=== PATIENT | female | born 1990 | race Caucasian/White ===

== ENCOUNTER 2017-04-20 13:53 | Emergency (ER) | payer OTHER ==
[~2017-04-20] VITALS: Ht 165.1 cm; Wt 48.7 kg
[~2017-04-20 13:53] MED LIST: ATEN25TA PO; BCPILLS PO
[2017-04-20 14:02] VITALS: TEMP 36.7; Ht 165.1 cm; Wt 48.7 kg
[2017-04-20 14:40] LABS: HEMATOCRIT 38.5 % (37-47); HEMOGLOBIN 12.9 g/dL (12.0-16.0); MEAN CELL VOLUME 93.2 fL (80-100); MEAN CORPUSCULAR HEMOGLOBIN 31.2 pg (25-34); MEAN CORPUSCULAR HGB CONC 33.5 g/dl (32-36); MEAN PLATELET VOLUME 9.3 fL (7.4-10.4); PLATELET COUNT 302 K/uL (130-400); RED CELL DISTRIBUTION WIDTH SD 40.6 fL (36.4-46.3); WHITE BLOOD COUNT 9.16 K/uL (4.8-10.8)
[2017-04-20 14:56] LABS: ALBUMIN 3.8 gm/dl (3.4-5.0); ALT/SGPT 21 U/L (12-78); AST/SGOT 17 U/L (15-37); BLOOD UREA NITROGEN 11 mg/dl (7-18); CALCIUM 8.8 mg/dl (8.5-10.1); CARBON DIOXIDE 24 mmol/L (21-32); CREATININE 0.76 mg/dl (0.60-1.20); GLUCOSE 103 mg/dl (70-99); LIPASE 246 U/L (73-393); POTASSIUM 3.5 mmol/L (3.5-5.1); SODIUM 136 mmol/L (136-145)
[2017-04-20 15:00] LABS: BASO % 0.1 %; BASO ABS # 0.01 K/uL (0-0.2); EOS % 0.7 %; EOS ABS # 0.06 K/uL (0-0.5); IG# 0.01 K/uL (0.00-0.02); LYMPH % 19.2 %; LYMPH ABS # 1.76 K/uL (1.2-3.4); MONO % 3.7 %; MONO ABS # 0.34 K/uL (0.11-0.59); NEUT % 76.2 %; NEUT ABS # 6.98 K/uL (1.4-6.5)
[2017-04-20 15:07] LABS: ALKALINE PHOSPHATASE 49 U/L (45-117); TOTAL PROTEIN 7.5 gm/dl (6.4-8.2)
--- NOTE | 2017-04-20 15:36 | DIAGNOSTIC IMAGING REPORT ---
ABDOMEN 2VIEW W/PA CHEST RTN CLINICAL HISTORY: abd pain pain COMPARISON STUDY: 04/15/2014 FINDINGS: The soft tissues, psoas shadows, renal outlines and intestinal gas pattern appear normal. There is no evidence for bowel obstruction. There is no evidence for free intraperitoneal air. No abnormal abdominal calcifications are seen. A frontal view of the chest was performed and is unremarkable. IMPRESSION: Normal study. The above report was generated using voice recognition software. It may contain grammatical, syntax or spelling errors. Electronically signed by: Bharat Grullon M.D. 04/20/2017 3:35 PM Dictated Date/Time: 04/20/2017 3:35 PM
[2017-04-20 16:57] VITALS: BP 118/73; PULSE 80; O2SAT 98
--- NOTE | 2017-04-20 19:06 | EMERGENCY ROOM VISIT NOTE ---
History Report prepared by Yoni: Sg Archuleta Under the Supervision of: Dorothy TaylorO. First contact with patient: 14:09 Chief Complaint: PALPITATIONS Stated Complaint: PALPATATIONS, HX OF SVT, EXCESSIVE GAS/BELCHING History of Present Illness The patient is a 27 year old female who presents to the Emergency Room with complaints of intermittent palpitations starting three days ago. The patient states that she feels like air is trapped in her stomach, then she has some palpitations, and then she belches and feels fine. Though the past few days, afterwards she would still feel the palpitations. She states that three days ago it happened for a round 10-15 minutes, and then two days ago she had it for a few hours, yesterday she had it a few times, and then today it has been constant since around 1000 this morning. She states that she does not feel like she has to burp today, though her heart feels like it is fluttering. The patient states that she is a little short of breath, though she denies any real chest pain stating that there is only a discomfort with the palpitations. The patient has a history of SVT, and she had an ablation done in 2016. She states that she has a history of IBS, panic attacks, and anxiety as well. She states that she still has her appendix and gall bladder. Her last bowel movement was this morning a couple of hours ago. Patient denies diabetes, hypertension, hyperlipidemia, CAD, history of sudden at a young age, and smoking. Pt denies headache, change in vision, throat pain, ear pain, fevers, nausea, vomiting, diarrhea, pain with urination, and melena. Source of History: patient Onset: three days ago Position: other (heart) Quality: other (palpitations) Timing: intermittent Associated Symptoms: + SOB, No chest pain Review of Systems See HPI for pertinent positives & negatives. A total of 10 systems reviewed and were otherwise negative. Past Medical & Surgical Medical Problems: (1) Chronic Sinusitis Nos (2) Tachycardia Nos Family History Hypertension Lung disease Social History Smoking Status: Never Smoker Alcohol Use: none Drug Use: none Marital Status: single Housing Status: lives with family Occupation Status: employed Current/Historical Medications Scheduled Control Pills ( Control Pills), 1 TAB PO DAILY Allergies Coded Allergies: Penicillins (Verified Allergy, Intermediate, RASH, 04/20/17) Sulfa Antibiotics (Verified Allergy, Intermediate, RASH, 04/20/17) Physical Exam Vital Signs Date Time Temp Pulse Resp B/P (MAP) Pulse Ox O2 Delivery O2 Flow Rate FiO2 04/20/17 16:57 80 18 118/73 98 04/20/17 15:40 78 18 133/93 99 Room Air 04/20/17 14:30 78 04/20/17 14:28 98 Room Air 04/20/17 14:02 36.7 115 20 157/77 98 Room Air Physical Exam GENERAL: Sitting up in bed, alert, well appearing, well nourished, no distress, non-toxic EYE EXAM: normal conjunctiva. OROPHARYNX: no exudate, no erythema, lips, buccal mucosa, and tongue normal and mucous membranes are moist NECK: supple, no nuchal rigidity, no adenopathy, non-tender, no JVD. LUNGS: Clear to auscultation. Normal chest wall mechanics HEART: Tachycardic. No murmurs, S1 normal and S2 normal ABDOMEN: abdomen soft, non-tender, normo-active bowel sounds, no masses, no rebound or guarding. BACK: Back is symmetrical on inspection and there is no deformity, no midline tenderness, no CVA tenderness. SKIN: no rashes and no bruising UPPER EXTREMITIES: upper extremities are grossly normal. LOWER EXTREMITIES: Calves are equal bilaterally. No pitting edema. NEURO EXAM: Normal sensorium, cranial nerves II-XII grossly intact, normal speech, no gross weakness of arms, no gross weakness of legs. Medical Decision & Procedures ER Provider Diagnostic Interpretation: Radiology results as stated below per my review and the radiologist's interpretation: ABDOMEN 2VIEW W/PA CHEST RTN CLINICAL HISTORY: abd pain pain COMPARISON STUDY: 04/15/2014 FINDINGS: The soft tissues, psoas shadows, renal outlines and intestinal gas pattern appear normal. There is no evidence for bowel obstruction. There is no evidence for free intraperitoneal air. No abnormal abdominal calcifications are seen. A frontal view of the chest was performed and is unremarkable. IMPRESSION: Normal study. The above report was generated using voice recognition software. It may contain grammatical, syntax or spelling errors. Electronically signed by: Bharat Grullon M.D. 04/20/2017 3:35 PM Dictated Date/Time: 04/20/2017 3:35 PM Laboratory Results 2/12/18 14:28 Red Blood Count 4.13, Mean Corpuscular Volume 93.2, Mean Corpuscular Hemoglobin 31.2, Mean Corpuscular Hemoglobin Concent 33.5, Mean Platelet Volume 9.3, Neutrophils (%) (Auto) 76.2, Lymphocytes (%) (Auto) 19.2, Monocytes (%) (Auto) 3.7, Eosinophils (%) (Auto) 0.7, Basophils (%) (Auto) 0.1, Neutrophils # (Auto) 6.98, Lymphocytes # (Auto) 1.76, Monocytes # (Auto) 0.34, Eosinophils # (Auto) 0.06, Basophils # (Auto) 0.01 04/20/17 14:28 Test 04/20/17 14:28 04/20/17 15:00 White Blood Count 9.16 K/uL (4.8-10.8) Red Blood Count 4.13 M/uL (4.2-5.4) Hemoglobin 12.9 g/dL (12.0-16.0) Hematocrit 38.5 % (37-47) Mean Corpuscular Volume 93.2 fL (80-100) Mean Corpuscular Hemoglobin 31.2 pg (25-34) Mean Corpuscular Hemoglobin Concent 33.5 g/dl (32-36) Platelet Count 302 K/uL (130-400) Mean Platelet Volume 9.3 fL (7.4-10.4) Neutrophils (%) (Auto) 76.2 % Lymphocytes (%) (Auto) 19.2 % Monocytes (%) (Auto) 3.7 % Eosinophils (%) (Auto) 0.7 % Basophils (%) (Auto) 0.1 % Neutrophils # (Auto) 6.98 K/uL (1.4-6.5) Lymphocytes # (Auto) 1.76 K/uL (1.2-3.4) Monocytes # (Auto) 0.34 K/uL (0.11-0.59) Eosinophils # (Auto) 0.06 K/uL (0-0.5) Basophils # (Auto) 0.01 K/uL (0-0.2) RDW Standard Deviation 40.6 fL (36.4-46.3) RDW Coefficient of Variation 12.0 % (11.5-14.5) Immature Granulocyte % (Auto) 0.1 % Immature Granulocyte # (Auto) 0.01 K/uL (0.00-0.02) D-Dimer < 190 ug/L FEU (0-500) Anion Gap 8.0 mmol/L (3-11) Est Creatinine Clear Calc Drug Dose 84.7 ml/min Estimated GFR () 123.7 Estimated GFR (Non- 106.8 BUN/Creatinine Ratio 14.7 (10-20) Calcium Level 8.8 mg/dl (8.5-10.1) Total Bilirubin 0.3 mg/dl (0.2-1) Direct Bilirubin < 0.1 mg/dl (0-0.2) Aspartate Amino Transf (AST/SGOT) 17 U/L (15-37) Alanine Aminotransferase (ALT/SGPT) 21 U/L (12-78) Alkaline Phosphatase 49 U/L (45-117) Troponin I < 0.015 ng/ml (0-0.045) Total Protein 7.5 gm/dl (6.4-8.2) Albumin 3.8 gm/dl (3.4-5.0) Lipase 246 U/L (73-393) Thyroid Stimulating Hormone (TSH) 0.763 uIu/ml (0.300-4.500) Urine Color YELLOW Urine Appearance CLEAR (CLEAR) Urine pH 6.0 (4.5-7.5) Urine Specific [place] 1.018 (1.000-1.030) Urine Protein NEG (NEG) Urine Glucose (UA) NEG (NEG) Urine Ketones NEG (NEG) Urine Occult Blood NEG (NEG) Urine Nitrite NEG (NEG) Urine Bilirubin NEG (NEG) Urine Urobilinogen NEG (NEG) Urine Leukocyte Esterase NEG (NEG) Urine WBC (Auto) 1-5 /hpf (0-5) Urine RBC (Auto) 0-4 /hpf (0-4) Urine Hyaline Casts (Auto) 1-5 /lpf (0-5) Urine Epithelial Cells (Auto) >30 /lpf (0-5) Urine Bacteria (Auto) NEG (NEG) Urine Test NEG (NEG) Laboratory results per my review. ECG Indication: palpitations Rate (beats per minute): 92 Rhythm: sinus rhythm Findings: other (normal axis, non-specific ST flattening in the inferior leads) Change: Patient's electrocardiogram interpreted by me. ED Course ED COURSE: Vital signs were reviewed and showed tachycardia and situational hypertension The patients medical record was reviewed The above diagnostic studies were performed and reviewed. ED treatments and interventions as stated above. 1409: The patient was evaluated in room C9. A complete history and physical examination was performed. 1636: Upon reevaluation, the patient is doing well.I discussed my findings with the patient and she understands and agrees with the treatment plan. Based on the patients age, coexisting illnesses, exam and lab findings the decision to treat as an outpatient was made. The patient remained stable while under my care. The patient appeared well at the time of discharge. Medical Decision Differential diagnosis: Etiologies such as premature contractions, electrolyte abnormality, cardiac dysrhythmia, thyroid dysfunction, pulmonary embolism, infection, gastrointestinal, as well as others were entertained. Patient is a 19-year-old female with a past medical history of SVT who presents to ER with intermittent fullness in her epigastric region. This makes her feel like she has to burp which she does and then feels like her heart is racing. Previous ablation. Patient notes that has been coming intermittently but persistent throughout most of today. CBC all BMP, LFTs, bilirubin and troponin was unremarkable. Lipase and TSH were normal. UA was negative. was negative. D-dimer was negative. Chest x-ray and abdominal obstruction series was unremarkable. She is monitored in the ER. No signs of overt rhythm. EKG was unremarkable. Patient was updated bedside and felt significant better. She discharged follow-up with PCP as an outpatient. I did instruct her to purchase Pepcid [id number] and to see if this is related to GI/GERD. Discussed with Pt concerning signs and symptoms to watch out for. Pt was instructed to follow up with their PCP and discussed with the patient their option to return to the ED at anytime for persistent or worsening symptoms. The appropriate anticipatory guidance and out-patient management, including indications for return to the emergency department, were explained at length to the patient and understood. Medication Reconcilliation Current Medication List: was personally reviewed by me Blood Pressure Screening Patient's blood pressure: Elevated blood pressure Blood pressure disposition: Elevated BP felt to be situational Impression Primary Impression: Palpitations Scribe Attestation The scribe's documentation has been prepared under my direction and personally reviewed by me in its entirety. I confirm that the note above accurately reflects all work, treatment, procedures, and medical decision making performed by me. Departure Information Dispostion Home / Self-Care Referrals Molly Infante D.O. (PCP) Forms HOME CARE DOCUMENTATION FORM, IMPORTANT VISIT INFORMATION, WORK / SCHOOL INSTRUCTIONS Patient Instructions ED Palpitations, My [facility] Additional Instructions Please follow up with your primary care doctor with in the next 24 hours. Any worsening of your symptoms, please return to the ED immediately. This includes any fevers greater than 100.4, worsening pain, chest pain, shortness breath, persistent nausea, vomiting, unable to eat or drink, or any other concerning signs or symptoms from your standpoint. Please be sure you follow up with your operations supervisor 2nd shift as an outpatient.
== END 2017-04-20 16:58 | disposition home or self-care (01) ==
LOC: C.EDB 13:55 → C.EDC 16:58
DX: R00.2 Palpitations (principal); K58.9 Irritable bowel syndrome, unspecified; F41.9 Anxiety disorder, unspecified; J32.9 Chronic sinusitis, unspecified; R00.0 Tachycardia, unspecified; Z86.79 Personal history of other diseases of the circulatory system; Z82.49 Family history of ischemic heart disease and other diseases of the circulatory system; Z79.3 Long term (current) use of hormonal contraceptives

== ENCOUNTER 2018-07-30 19:10 | Inpatient (IN) ==
[2018-07-30] MEDS ORDERED: OXYTOCIN 30 UNITS/500 ML BAG IV PRN (19:45)
[2018-07-30] MEDS: LACTATED RINGER'S 1,000 ML IV PRN ×2 (20:00→21:02)
[2018-07-30] MEDS ORDERED: BUPIVACAINE 0.25% 30 ML VIAL ONE (20:03)
[2018-07-30] MEDS ORDERED: ePHEDrine sulfate 50 MG/ML AMP ONE (20:03)
[2018-07-30] MEDS ORDERED: fentaNYL citrate 100 MCG/2 ML VIAL ONE (20:03)
[2018-07-30] MEDS ORDERED: fentaNYL 2MCG/ML ROPIV 1.25MG/ML 100 ML BAG EPI ONE (20:04)
[2018-07-30 20:17] LABS: Hematocrit (blood only) 33.3 % (37-47); Hemoglobin 11.6 g/dL (12.0-16.0); Mean Corpuscular Volume 95.7 fL (80-100); Mean Platelet Volume 9.6 fL (7.4-10.4); Platelet Count 263 K/uL (130-400); RDW Coefficient of Variation 12.7 % (11.5-14.5); RDW Standard Deviation 43.7 fL (36.4-46.3); Red Blood Count 3.48 M/uL (4.2-5.4); White Blood Count 12.42 K/uL (4.8-10.8)
--- NOTE | 2018-07-30 20:35 | Anesthesiology Consultation ---
Date of Service July 30, 2018 Assessment & Plan Chart Review Chart Review: Patient NOT seen in Pre Admission Testing and Acceptable Risk for Labor Epidural Consults Requested none ASA ASA2 Proposed Anesthesia Anesthesia Type: Labor Epidural and CSE Risk / Benefits Reviewed With: PT / POA / Parent / Guardian, Accepts Plan and Informed Consent Obtained History Height/Weight Height: 5 ft 5 in Weight: 61.689 kg Allergies Allergy/AdvReac Type Severity Reaction Status Date / Time Penicillins Allergy Intermediate RASH Verified 06/08/18 10:43 Sulfa (Sulfonamide Allergy Intermediate RASH Verified 06/08/18 10:43 Antibiotics) Medications Home Medications Medication Instructions Recorded Confirmed Last Taken pedi multivitamin no.79-iron 1 tab PO DAILY 07/30/18 07/30/18 07/29/18 08:00 [Flintstones with Iron] NPO Date Last Intake of Fluids: 07/30/18 Time Last Intake of Fluids: 20:00 Date Last Intake of Solids: 07/30/18 Time Last Intake of Solids: 18:00 Past Medical History Medical History Anxiety (Acute) Ovarian cyst Exercise / Class Metabolic Activity II 4-5 Yardwork/Stairs/Walk up hill Past Family History Family History Other No pertinent family history Past Surgical History Surgical History Status post ablation operation for arrhythmia Past Anesthesia History No Hx of Anesthesia Complications and No Family Hx of Anesthesia Complications History of PONV No Hx of PONV Social History Smoking Status: Never smoker Do You Dip or Chew Tobacco: No Hx Alcohol Use: No Hx Substance Use: No substance use type: does not use Review of Systems no chest pain or sob Physical Exam Vital Signs Last Vital Signs Temp 36.5 C 07/30/18 20:04 Pulse 80 07/30/18 20:04 Resp 20 07/30/18 20:04 BP 130/76 07/30/18 20:04 ENMT Mouth: no TMJ abnormality Thyromental Distance: > or= 3.5 Finger Breadths Mallampati Class: II Neck normal visual inspection Respiratory normal respiratory effort Auscultation: lungs clear to auscultation bilaterally Cardiovascular Rate/Rhythm: regular rate and regular rhythm Musculoskeletal Spine: normal cervical ROM Neurologic moves all extremities Psychiatric Orientation: alert and oriented x 3 Testing Other Testing plt [id number]
[2018-07-30] MEDS ORDERED: ONDANSETRON INJ 2 MG/ML 2 ML VIAL IV PRN (20:37)
[2018-07-30] MEDS ORDERED: NALBUPHINE HCL INJ 10 MG/ML AMP IV PRN (20:37)
[2018-07-30] MEDS ORDERED: NALOXONE HCL 0.4 MG/1 ML VIAL/CARP IV PRN (20:37)
[2018-07-30] MEDS ORDERED: ePHEDrine sulfate 50 MG/ML AMP IV PRN (20:37)
[2018-07-30] MEDS ORDERED: NALOXONE HCL 1 MG in SODIUM CHLORIDE 0.9% 1000ML 1,000 ML IV PRN (20:37)
[2018-07-30] MEDS ORDERED: DiphenhydrAMINE HCL 50 MG/ML VIAL IV PRN (20:37)
[2018-07-30] MEDS: fentaNYL 2MCG/ML ROPIV 1.25MG/ML 100 ML BAG EPI PRN (20:57)
[2018-07-30 21:53] LABS: Mean Corpuscular Hgb Conc 34.8 g/dL (32-36)
--- NOTE | 2018-07-30 22:18 | Anesthesia Procedure Note ---
Date of Service July 30, 2018 Anesthesia Post Epidural Note Vital Signs Vital Signs: Temp Pulse Resp BP Pulse Ox 07/30/18 22:15 93 H 96 07/30/18 22:10 80 97 07/30/18 22:05 78 117/64 96 07/30/18 22:00 76 96 07/30/18 21:55 90 96 07/30/18 21:50 90 96 07/30/18 21:49 100 H 125/79 07/30/18 21:45 84 97 07/30/18 21:40 81 97 07/30/18 21:35 92 H 97 07/30/18 21:34 86 128/75 07/30/18 21:30 94 H 20 97 07/30/18 21:25 97 H 96 07/30/18 21:20 84 97 07/30/18 21:19 93 H 133/79 07/30/18 21:15 95 H 97 07/30/18 21:10 95 H 99 07/30/18 21:05 102 H 100 07/30/18 21:02 114 H 132/86 07/30/18 21:00 111 H 100 07/30/18 20:58 124/68 07/30/18 20:55 105 H 142/63 H 100 07/30/18 20:50 101 H 131/67 100 07/30/18 20:45 96 H 100 07/30/18 20:40 96 H 100 07/30/18 20:35 103 H 100 07/30/18 20:04 36.5 C 80 20 130/76 07/30/18 19:28 104 H 137/73 07/30/18 19:25 36.5 C 20 Notes Mental Status: alert / awake / arousable and participated in evaluation Nausea / Vomiting: adequately controlled Pain: adequately controlled Airway Patency, RR, SpO2: stable & adequate BP & HR: stable & adequate Hydration State: stable & adequate Neuraxial Anesthesia: was administered and sensory block is resolving Anesthetic Complications: no major complications apparent and Pt Satisfied with anesthetic care Epidural: Removed without complications and With tip intact
--- NOTE | 2018-07-31 00:10 | Labor Progress Brief Note ---
Date of Service July 31, 2018 doing well FHR; CAT1 Ctx ; 2-6mins VE 7/100/0 AROM; clear' Anticipate VD Results & Data Vital Signs (Past 12 Hours) Vital Signs Temp Pulse Resp BP Pulse Ox 07/31/18 00:05 98 H 143/80 H 100 07/31/18 00:00 70 98 07/30/18 23:55 73 100 07/30/18 23:50 68 116/71 99 07/30/18 23:45 74 100 07/30/18 23:40 72 99 07/30/18 23:36 81 124/80 07/30/18 23:35 87 100 07/30/18 23:30 90 20 100 07/30/18 23:25 78 99 07/30/18 23:22 75 113/65 07/30/18 23:20 74 99 07/30/18 23:15 81 99 07/30/18 23:10 87 99 07/30/18 23:05 87 98 07/30/18 23:04 82 109/68 07/30/18 23:00 83 98 07/30/18 22:55 90 97 07/30/18 22:50 88 98 07/30/18 22:49 85 112/69 07/30/18 22:45 89 98 07/30/18 22:40 100 H 98 07/30/18 22:35 99 H 149/70 H 98 07/30/18 22:30 36.7 C 82 18 97 07/30/18 22:25 79 97 07/30/18 22:20 90 121/68 97 07/30/18 22:15 93 H 96 07/30/18 22:10 80 97 07/30/18 22:05 78 117/64 96 07/30/18 22:00 76 18 96 07/30/18 21:55 90 96 07/30/18 21:50 90 96 07/30/18 21:49 100 H 125/79 07/30/18 21:45 84 97 07/30/18 21:40 81 97 07/30/18 21:35 92 H 97 07/30/18 21:34 86 128/75 07/30/18 21:30 94 H 20 97 07/30/18 21:25 97 H 96 07/30/18 21:20 84 97 05/24/19 21:19 93 H 133/79 05/24/19 21:15 95 H 97 07/30/18 21:10 95 H 99 07/30/18 21:05 102 H 100 07/30/18 21:02 114 H 132/86 07/30/18 21:00 111 H 100 07/30/18 20:58 124/68 07/30/18 20:55 105 H 142/63 H 100 07/30/18 20:50 101 H 131/67 100 07/30/18 20:45 96 H 100 07/30/18 20:40 96 H 100 07/30/18 20:35 103 H 100 07/30/18 20:04 36.5 C 80 20 130/76 07/30/18 19:28 104 H 137/73 07/30/18 19:25 36.5 C 20
[2018-07-31] MEDS: fentaNYL 2MCG/ML ROPIV 1.25MG/ML 100 ML BAG EPI PRN (02:16)
[2018-07-31] MEDS: LACTATED RINGER'S 1,000 ML IV PRN (04:16)
[2018-07-31] MEDS ORDERED: METHYLERGONOVINE MALEATE 0.2 MG/ML AMP ONE (07:23)
[2018-07-31] MEDS ORDERED: miSOPROStol 200 MCG TAB ONE (07:28)
[2018-07-31] MEDS ORDERED: ACETAMINOPHEN 325 MG TAB PO PRN (08:20)
[2018-07-31] MEDS ORDERED: ACETAMINOPHEN W/CODEINE #3 1 TAB PO PRN (08:20)
[2018-07-31] MEDS ORDERED: METHYLERGONOVINE MALEATE 0.2 MG/ML AMP IM ONE (08:20)
[2018-07-31] MEDS ORDERED: OXYCODONE/ACETAMINOPHEN 5mg/325mg TAB PO PRN ×2 (08:20→16:12)
[2018-07-31] MEDS ORDERED: HYDROCORTISONE ACETATE 25 MG SUPP PR PRN (08:20)
[2018-07-31] MEDS ORDERED: SUPERCREAM 0.870% 15 GM JAR EXT PRN (08:20)
[2018-07-31] MEDS ORDERED: miSOPROStol 200 MCG TAB PR ONE (08:20)
[2018-07-31] MEDS ORDERED: BENZOCAINE 20% AER SPR 82.5 GM CAN EXT PRN (08:20)
[2018-07-31] MEDS ORDERED: BISACODYL 10 MG SUPP PR PRN (08:20)
[2018-07-31] MEDS ORDERED: DIPHTHERIA/TETANUS/PERTUSSIS 0.5 ML SYR/VIAL IM ONE (08:20)
[2018-07-31] MEDS ORDERED: OXYTOCIN 30 UNITS/500 ML BAG IV PRN (08:20)
[2018-07-31] MEDS ORDERED: PRENATAL VITAMIN 1 TAB PO SCH (09:00)
[2018-07-31] MEDS: IBUPROFEN 600 MG TAB PO PRN ×3 (10:20→20:44)
--- NOTE | 2018-07-31 10:57 | Anesthesia Procedure Note ---
Date of Service July 31, 2018 Anesthesia Post Epidural Note Vital Signs Vital Signs: Temp Pulse Resp BP Pulse Ox 07/31/18 10:38 88 111/64 07/31/18 10:23 86 106/60 07/31/18 10:08 93 H 115/73 07/31/18 09:57 110 H 119/76 07/31/18 09:38 118 H 131/68 07/31/18 09:08 89 112/52 L 07/31/18 08:53 80 116/58 L 07/31/18 08:38 81 118/61 07/31/18 08:23 93 H 118/59 L 07/31/18 08:19 110 H 129/71 07/31/18 07:35 103 H 125/66 07/31/18 07:30 108 H 100 07/31/18 07:25 113 H 100 07/31/18 07:21 100 H 92 07/31/18 07:20 107 H 143/85 H 100 07/31/18 07:15 116 H 100 07/31/18 07:10 117 H 100 07/31/18 07:09 108 H 76 L 07/31/18 07:06 117 H 135/90 07/31/18 07:05 104 H 100 07/31/18 07:00 119 H 100 07/31/18 06:56 119 H 83 L 07/31/18 06:55 119 H 100 07/31/18 06:50 122 H 146/80 H 100 07/31/18 06:45 99 H 100 07/31/18 06:40 108 H 75 L 07/31/18 06:36 97 H 132/72 07/31/18 06:35 114 H 142/106 H 100 07/31/18 06:32 115 H 80 L 07/31/18 06:30 90 100 07/31/18 06:25 96 H 100 07/31/18 06:20 109 H 100 07/31/18 06:19 93 H 126/80 07/31/18 06:15 105 H 100 07/31/18 06:10 117 H 100 07/31/18 06:05 111 H 132/79 100 07/31/18 06:00 89 99 07/31/18 05:55 106 H 99 07/31/18 05:51 85 120/67 05/25/19 05:50 89 98 07/31/18 05:45 103 H 97 07/31/18 05:40 91 H 97 07/31/18 05:35 94 H 97 07/31/18 05:34 99 H 110/67 07/31/18 05:30 37.0 C 97 H 20 97 07/31/18 05:25 85 98 07/31/18 05:20 107 H 97 07/31/18 05:19 90 110/66 07/31/18 05:15 95 H 98 07/31/18 05:10 102 H 98 07/31/18 05:05 93 H 111/64 98 07/31/18 05:00 71 18 96 07/31/18 04:55 58 L 97 07/31/18 04:50 69 98 07/31/18 04:49 76 117/75 07/31/18 04:45 64 96 07/31/18 04:40 74 98 07/31/18 04:35 67 116/74 98 07/31/18 04:30 66 97 07/31/18 04:25 68 97 07/31/18 04:20 69 97 07/31/18 04:19 73 112/72 07/31/18 04:15 91 H 97 07/31/18 04:10 76 97 07/31/18 04:06 63 103/65 07/31/18 04:05 63 96 07/31/18 04:00 61 96 07/31/18 03:55 59 L 96 07/31/18 03:50 61 108/68 97 07/31/18 03:45 73 97 07/31/18 03:40 82 97 07/31/18 03:35 63 96 07/31/18 03:34 63 111/70 07/31/18 03:30 57 L 18 97 07/31/18 03:25 59 L 96 07/31/18 03:20 74 112/71 98 07/31/18 03:15 61 97 07/31/18 03:10 68 97 07/31/18 03:05 75 98 07/31/18 03:04 80 117/76 07/31/18 03:00 64 97 07/31/18 02:55 73 98 07/31/18 02:50 62 113/67 98 07/31/18 02:45 59 L 96 07/31/18 02:40 58 L 97 07/31/18 02:36 62 110/70 07/31/18 02:35 68 98 07/31/18 02:30 67 98 07/31/18 02:25 58 L 96 07/31/18 02:20 63 116/73 98 07/31/18 02:15 68 98 07/31/18 02:10 75 98 07/31/18 02:05 69 118/73 97 07/31/18 02:00 36.6 C 76 20 97 07/31/18 01:55 70 97 07/31/18 01:50 84 132/66 98 07/31/18 01:45 72 97 07/31/18 01:40 76 98 07/31/18 01:36 69 116/74 07/31/18 01:35 71 98 07/31/18 01:30 77 18 98 07/31/18 01:25 74 99 07/31/18 01:20 68 98 07/31/18 01:19 60 106/61 07/31/18 01:15 61 96 07/31/18 01:10 60 96 07/31/18 01:05 61 110/70 98 07/31/18 01:00 63 20 99 07/31/18 00:55 67 99 07/31/18 00:51 62 118/68 07/31/18 00:50 67 98 07/31/18 00:45 73 98 07/31/18 00:40 74 98 07/31/18 00:36 68 121/75 07/31/18 00:35 73 98 07/31/18 00:30 67 18 98 07/31/18 00:25 78 100 07/31/18 00:21 78 127/75 07/31/18 00:20 75 100 07/31/18 00:15 74 98 07/31/18 00:10 36.7 C 82 18 100 07/31/18 00:05 98 H 143/80 H 100 07/31/18 00:00 70 98 07/30/18 23:55 73 100 07/30/18 23:50 68 116/71 99 07/30/18 23:45 74 100 07/30/18 23:40 72 99 07/30/18 23:36 81 124/80 07/30/18 23:35 87 100 07/30/18 23:30 90 20 100 05/19 23:25 78 99 07/30/18 23:22 75 113/65 07/30/18 23:20 74 99 07/30/18 23:15 81 99 07/30/18 23:10 87 99 07/30/18 23:05 87 98 07/30/18 23:04 82 109/68 07/30/18 23:00 83 98 07/30/18 22:55 90 97 07/30/18 22:50 88 98 07/30/18 22:49 85 112/69 07/30/18 22:45 89 98 07/30/18 22:40 100 H 98 07/30/18 22:35 99 H 149/70 H 98 07/30/18 22:30 36.7 C 82 18 97 07/30/18 22:25 79 97 07/30/18 22:20 90 121/68 97 07/30/18 22:15 93 H 96 07/30/18 22:10 80 97 07/30/18 22:05 78 117/64 96 07/30/18 22:00 76 18 96 07/30/18 21:55 90 96 07/30/18 21:50 90 96 07/30/18 21:49 100 H 125/79 07/30/18 21:45 84 97 07/30/18 21:40 81 97 07/30/18 21:35 92 H 97 07/30/18 21:34 86 128/75 07/30/18 21:30 94 H 20 97 07/30/18 21:25 97 H 96 07/30/18 21:20 84 97 07/30/18 21:19 93 H 133/79 07/30/18 21:15 95 H 97 07/30/18 21:10 95 H 99 07/30/18 21:05 102 H 100 07/30/18 21:02 114 H 132/86 07/30/18 21:00 111 H 100 07/30/18 20:58 124/68 07/30/18 20:55 105 H 142/63 H 100 07/30/18 20:50 101 H 131/67 100 07/30/18 20:45 96 H 100 07/30/18 20:40 96 H 100 07/30/18 20:35 103 H 100 07/30/18 20:04 36.5 C 80 20 130/76 07/30/18 19:28 104 H 137/73 07/30/18 19:25 36.5 C 20 Notes Mental Status: alert / awake / arousable Patient Amnestic to Procedure: Yes Nausea / Vomiting: adequately controlled Pain: adequately controlled Airway Patency, RR, SpO2: stable & adequate BP & HR: stable & adequate Hydration State: stable & adequate Neuraxial Anesthesia: was administered and sensory block resolved Anesthetic Complications: no major complications apparent and Pt Satisfied with anesthetic care Epidural: Removed without complications and With tip intact
--- NOTE | 2018-07-31 11:20 | History and Physical Report ---
DATE OF ADMISSION: 07/30/2018 HISTORY OF PRESENT ILLNESS: The patient is a 28-year-old G1, P0, due date was 08/11/2018 making her 38 weeks and 2 days who presented to labor and delivery in labor. On arrival to labor and delivery, she had no shortness of breath, no chills, no fever. She had contractions every 2-3 minutes. Cervical exam shows she was 4-5 cm. The patient was admitted in anticipation for labor. COURSE: Has been unremarkable. LABORATORY DATA: Blood type B positive, antibody negative, rubella immune, GBS negative. PAST MEDICAL HISTORY: 1. History of premature ventricular contractions. 2. Supraventricular tachycardia. 3. Panic disorder. 4. Generalized anxiety disorder. PAST SURGICAL HISTORY: The patient has a history of dental surgery. SOCIAL HISTORY: The patient denies tobacco, drug or alcohol use. The patient is and lives with spouse. FAMILY HISTORY: Noncontributory. ALLERGIES: THE PATIENT IS ALLERGIC TO SULFA ANTIBIOTICS AND PENICILLIN. PHYSICAL EXAMINATION: GENERAL: Well-developed, well-nourished white female in no acute distress. HEART: S1, S2, regular rhythm and rate. LUNGS: Clear to auscultation bilaterally. ABDOMEN: Gravid. PELVIC: On admission is 4-5 cm. EXTREMITIES: No cyanosis, clubbing or edema. ASSESSMENT AND PLAN: A 28-year-old G1, P0, at 38+ weeks in labor. Plan is to admit patient, anticipate vaginal delivery.
[2018-07-31] MEDS: DOCUSATE SODIUM 100 MG CAP PO SCH ×2 (11:30→20:44)
[2018-07-31] MEDS: FERROUS SULFATE 325 MG TAB PO SCH (11:31)
[2018-07-31 16:54] LABS: Hematocrit (blood only) 30.7 % (37-47); Hemoglobin 10.5 g/dL (12.0-16.0)
[2018-08-01] MEDS: IBUPROFEN 600 MG TAB PO PRN ×4 (02:28→20:42)
--- NOTE | 2018-08-01 04:40 | Obstetrical Progress Note ---
Date of Service August 01, 2018 Assessment & Plan (1) Vaginal delivery: PPD 1 Doing well Continue current care Supervising Physician Co-Signing Physician Notes Emma Andrade MD Subjective Pt feeling fine. Able to sleep some. Some pain and swelling from vaginal hematoma but able sit, walk, and void without difficulty. Review of Systems Review of Systems: All systems reviewed & are unremarkable except as noted in HPI & below Physical Exam Constitutional: WD/WN, vitals as above Respiratory: normal respiratory effort, lungs clear to auscultation Cardiovascular: RRR, no murmur, no edema Gastrointestinal (Abdomen): normal bowel sounds, soft, nontender, no hepatosplenomegaly Genitourinary: Speculum/Bimanual Exam: + vaginal tenderness and + vaginal swelling Results & Data Vital Signs (Past 12 Hours) Vital Signs Temp Pulse Resp BP 07/31/18 23:45 36.4 C L 107 H 18 109/75 07/31/18 20:30 36.7 C 93 H 20 120/79
[2018-08-01 06:51] LABS: Hematocrit (blood only) 22.6 % (37-47); Hemoglobin 7.9 g/dL (12.0-16.0); Mean Corpuscular Volume 95.4 fL (80-100); Mean Platelet Volume 8.7 fL (7.4-10.4); Platelet Count 203 K/uL (130-400); RDW Coefficient of Variation 12.8 % (11.5-14.5); RDW Standard Deviation 44.3 fL (36.4-46.3); Red Blood Count 2.37 M/uL (4.2-5.4); White Blood Count 15.44 K/uL (4.8-10.8)
[2018-08-01] MEDS: FERROUS SULFATE 325 MG TAB PO SCH (08:48)
[2018-08-01] MEDS: DOCUSATE SODIUM 100 MG CAP PO SCH ×2 (08:48→20:42)
[2018-08-01] MEDS ORDERED: FLINTSTONES COMPLETE CHEWABLE TAB PO SCH (19:15)
[2018-08-01] MEDS ORDERED: BISACODYL 5 MG TABEC PO SCH (20:00)
[2018-08-02] MEDS: IBUPROFEN 600 MG TAB PO PRN ×3 (02:34→15:16)
[2018-08-02 07:03] LABS: Hematocrit (blood only) 23.8 % (37-47); Hemoglobin 8.1 g/dL (12.0-16.0)
[2018-08-02] MEDS: DOCUSATE SODIUM 100 MG CAP PO SCH (08:08)
[2018-08-02] MEDS: FERROUS SULFATE 325 MG TAB PO SCH (08:09)
--- NOTE | 2018-08-02 08:32 | Obstetrical Progress Note ---
Date of Service August 02, 2018 Subjective Patient is seen and examined. She feels well, no complaints. Pain is under control with meds Ambulating without dizziness Voiding without difficulty Tolerating regular diet with out N&V Bleeding is minimal No fever/ chills/ CP/ SOB/ N&V/ Leg pain Breast feeding without problems Vital Signs Temp Pulse Resp BP 08/01/18 23:15 36.7 C 79 18 120/73 Vital Signs Temp Pulse Resp BP 08/01/18 23:15 36.7 C 79 18 120/73 08/01/18 20:20 36.7 C 96 H 20 115/73 08/01/18 15:50 36.8 C 99 H 20 113/76 08/02/18 Range/Units 06:34 Hgb 8.1 L (12.0-16.0) g/dL Hct 23.8 L (37-47) % Lab Results 07/30/18 07/31/18 08/01/18 Range/Units 20:06 16:37 06:32 WBC 12.42 H 15.44 H (4.8-10.8) K/uL RBC 3.48 L 2.37 L (4.2-5.4) M/uL Hgb 11.6 L 10.5 L 7.9 L (12.0-16.0) g/dL Hct 33.3 L 30.7 L 22.6 L (37-47) % MCV 95.7 95.4 (80-100) fL MCH 33.3 33.3 (25-34) pg MCHC 34.8 35.0 (32-36) g/dL RDW Std Deviation 43.7 44.3 (36.4-46.3) fL RDW Coeff of Nella 12.7 12.8 (11.5-14.5) % Plt Count 263 203 (130-400) K/uL MPV 9.6 8.7 (7.4-10.4) fL 08/02/18 Range/Units 06:34 WBC (4.8-10.8) K/uL RBC (4.2-5.4) M/uL Hgb 8.1 L (12.0-16.0) g/dL Hct 23.8 L (37-47) % MCV (80-100) fL MCH (25-34) pg MCHC (32-36) g/dL RDW Std Deviation (36.4-46.3) fL RDW Coeff of Nella (11.5-14.5) % Plt Count (130-400) K/uL MPV (7.4-10.4) fL PE: General: Alert, orientedx3, NAD Abd: soft, NT, fundus firm, below Umbilicus Perineum intact, Lochia rubra minimal Bruise on vulva/ perianal skin, no edema, no hematoma felt in vagina Ext; NT, no edema AP: 28 yo s/p , ppd# 2 VSS Afebrile doing well Vulvar bruise, no hematoma H&H stable , plan to repeat at noon Continue routine care All questions were answered Anticipate D/C home this afternoon Results & Data Vital Signs (Past 12 Hours) Vital Signs Temp Pulse Resp BP 08/01/18 23:15 36.7 C 79 18 120/73
[2018-08-02 11:56] LABS: Hematocrit (blood only) 23.8 % (37-47)
--- NOTE | 2018-08-02 13:35 | Obstetrical Progress Note ---
Date of Service August 02, 2018 Subjective Patient is reevaluated Perineum/ vulvar bruising looks the same No hematoma 08/02/18 08/02/18 Range/Units 11:42 06:34 Hgb 8.0 L 8.1 L (12.0-16.0) g/dL Hct 23.8 L 23.8 L (37-47) % Plan to d/c home and f/u in office Rx written for Ferrous sulfate and Motrin Results & Data Vital Signs (Past 12 Hours) Vital Signs Temp Pulse Resp BP Pulse Ox 08/02/18 08:15 36.6 C 98 H 18 119/77 99
--- NOTE | 2018-08-03 08:04 | Operative Report ---
DATE OF OPERATION: 07/31/2018 DELIVERY NOTE The patient delivered a live in left occiput anterior presentation. There was a loose nuchal cord which was easily reduced. Infant was delivered, placed on mother's abdomen. Cord was clamped and cut after 1 minute. Cord blood was obtained. Placenta was spontaneously delivered. Inspection of the placenta shows a normal grossly looking placenta with 3-vessel cord. Inspection of the perineum shows a second-degree midline laceration with bilateral periurethral tears. These have been repaired in layers with 2-0 and 3-0 Vicryl. There was good hemostasis post repair. Rectal exam post repair showed good sphincter tone. No laceration. No sutures palpated in the rectum. ESTIMATED BLOOD LOSS: 700 mL. All instruments were removed from the vagina and accounted for x2 including sponges, needles and retractors. Baby and mother are doing well in recovery. The patient's weight and Apgars are in the pediatric record. I attest to the content of the Intraoperative Record and any orders documented therein. Any exception s are noted below.
== END 2018-08-02 18:50 | disposition home or self-care (01) | DRG 807 ==
LOC: OPB 19:10 → 4S1 19:10 → 4S2 07-31 13:52